=== PATIENT | female | born 1990 | race Caucasian/White ===

== ENCOUNTER 2023-08-24 11:09 | Emergency (ER) | payer MEDICAID ==
[~2023-08-24] VITALS: Ht 162.6 cm; Wt 84.0 kg
[2023-08-24 11:23] VITALS: TEMP 97.5; O2SAT 100
[2023-08-24 12:45] LABS: CLARITY URINE CLEAR (CLEAR); COLOR URINE YELLOW (YELLOW); GLUCOSE URINE NEGATIVE (NEGATIVE); KETONES URINE NEGATIVE (NEGATIVE); LEUKOCYTE ESTERASE URINE 1+ (NEGATIVE); NITRITE URINE NEGATIVE (NEGATIVE); OCCULT BLOOD URINE NEGATIVE (NEGATIVE); PH URINE 5.5 (4.5-8.0); PROTEIN URINE NEGATIVE (NEGATIVE); SPECIFIC GRAVITY URINE 1.011 (1.005-1.030); UROBILINOGEN URINE 0.2 E.U./dL (0.2-1.0)
[2023-08-24 12:59] VITALS: BP 130/62; PULSE 85; RESP 16
[2023-08-24] MEDS: METOCLOPRAMIDE HCL 10MG/2ML VIAL IM ONE (12:59)
[2023-08-24] MEDS: KETOROLAC 60MG/2ML VIAL IM STA (12:59)
[2023-08-24 13:19] LABS: BACTERIA URINE 1+; RBC URINE 0-2 /hpf (0-2); SQUAMOUS EPITHELIAL CELL URINE 1+ /lpf (RARE/1+); YEAST URINE NONE SEEN
[2023-08-24 13:41] LABS: BASOPHILS % 0.7 % (0.0-2.0); EOSINOPHILS % 0.9 % (0.0-5.0); HEMATOCRIT. 40.3 % (36.0-48.0); HEMOGLOBIN. 13.3 g/dL (12.0-16.0); LYMPHOCYTES % 21.9 % (20.0-50.0); MEAN CORPUSCULAR HEMOGLOBIN 27.9 pg (28.0-32.0); MEAN CORPUSCULAR VOLUME 84.5 fL (81.0-99.0); MEAN PLATELET VOLUME 7.6 fl (7.4-10.4); MONOCYTES % 6.6 % (2.0-8.0); NEUTROPHILS % 69.9 % (40.0-76.0); PLATELET 342 x1000/uL (130-400); RED BLOOD CELL COUNT 4.76 mill/uL (4.2-5.4); RED CELL DISTRIBUTION WIDTH 13.7 % (11.6-14.6)
[2023-08-24 13:51] LABS: CHLORIDE 108 mEq/L (98-107); SODIUM 138 mEq/L (136-145)
[2023-08-24 13:52] LABS: CALCIUM 9.1 mg/dL (8.7-10.4); CARBON DIOXIDE 24 mEq/L (21-32)
[2023-08-24 13:57] LABS: CREATININE 0.7 mg/dL (0.6-1.0); GLUCOSE 92 mg/dL (70-105); UREA NITROGEN BLOOD 11 mg/dL (9-23)
[2023-08-24 13:59] LABS: ALANINE AMINOTRANSFERASE 21 IU/L (10-49); ALBUMIN 4.6 g/dL (3.2-4.8); ASPARTATE AMINOTRANSFERASE 20 IU/L (<34); BILIRUBIN TOTAL 1.2 mg/dL (0.1-1.0); CREATINE KINASE 62 IU/L (34-145); PROTEIN TOTAL 7.8 g/dL (6.0-8.3)
[2023-08-24] MEDS ORDERED: NAPR-681 PO (14:28)
[2023-08-24] MEDS ORDERED: AMOX1TAB16 PO (14:28)
[2023-08-24] MEDS ORDERED: ONDA4TAB50 PO (14:28)
== END 2023-08-24 15:56 | disposition home or self-care (01) ==
LOC: ER 11:09
DX: R51.9 Headache, unspecified (principal); J32.9 Chronic sinusitis, unspecified; K02.9 Dental caries, unspecified; N39.0 Urinary tract infection, site not specified
CPT/HCPCS: 80053; 81003; 81025; 82550; 85025; 36415; 70450; 96372; 99285; J1885; J2765; Z7610